=== PATIENT | male | born 1980 | race Caucasian/White ===

== ENCOUNTER → 2020-11-21 | Outpatient (CLI) | payer OTHER ==
[~2020-11-21] MED LIST: ALEVE 220MG220 MG PO; IBU800 M1 PO; NEURONTIN300 MG/CAP PO; SYNTHROID0.075 MG/T PO; TYLENOL 325MG325 MG PO
== END ==
LOC: COL.RAD 07:28
DX: M48.061 Spinal stenosis, lumbar region without neurogenic claudication (principal); M51.16 Intervertebral disc disorders with radiculopathy, lumbar region; Q76.49 Other congenital malformations of spine, not associated with scoliosis

== ENCOUNTER → 2020-11-28 | Outpatient (CLI) | payer OTHER ==
[2020-11-28 15:30] VITALS: BP 139/95; PULSE 102
[2020-11-29 07:23] VITALS: BP 162/99; PULSE 103
== END ==
LOC: COL.RAD 12:55
DX: M54.16 Radiculopathy, lumbar region (principal)
CPT/HCPCS: J3301

== ENCOUNTER → 2020-12-27 | Outpatient (CLI) | payer OTHER ==
[~2020-12-27] VITALS: Ht 177.8 cm; Wt 139.0 kg
[2020-12-27 12:48] VITALS: BP 173/87; PULSE 122
[2020-12-27 14:30] VITALS: BP 152/98; PULSE 110
== END ==
LOC: COL.RAD 12:30
DX: M54.16 Radiculopathy, lumbar region (principal)
CPT/HCPCS: J3301

== ENCOUNTER → 2021-03-05 | Outpatient (CLI) | payer OTHER | LOC: COL.RAD 11:28 | DX: E04.2 Nontoxic multinodular goiter (principal) ==

== ENCOUNTER → 2021-03-25 | Outpatient (CLI) | payer OTHER ==
[~2021-03-25] VITALS: Ht 177.8 cm; Wt 142.8 kg
[2021-03-25 07:49] VITALS: BP 145/97; PULSE 106
[2021-03-25 08:48] VITALS: BP 147/86; PULSE 102
== END ==
LOC: COL.RAD 07:22
DX: E04.1 Nontoxic single thyroid nodule (principal)
CPT/HCPCS: 32140

== ENCOUNTER → 2021-06-12 | Outpatient (CLI) | payer OTHER | LOC: COL.RAD 06:55 | DX: R74.8 Abnormal levels of other serum enzymes (principal) ==

== ENCOUNTER → 2021-08-07 | Outpatient (CLI) | payer OTHER ==
[~2021-08-07] VITALS: Ht 177.8 cm; Wt 140.3 kg
[2021-08-07 06:47] VITALS: BP 131/77; PULSE 104; TEMP 98.1
[2021-08-07 07:45] VITALS: BP 142/88; PULSE 99
== END ==
LOC: COL.RAD 08-02 06:30
DX: M48.061 Spinal stenosis, lumbar region without neurogenic claudication (principal)
CPT/HCPCS: J3301

== ENCOUNTER → 2021-10-18 | Outpatient (CLI) | payer OTHER | LOC: ZCOL.LAB 16:24 | DX: Z20.822 Contact with and (suspected) exposure to COVID-19 (principal) ==

== ENCOUNTER → 2022-03-17 | Outpatient (CLI) | payer OTHER | LOC: COL.RAD 12:04 | DX: E04.2 Nontoxic multinodular goiter (principal) ==